=== PATIENT | female | born 1980 | race Two or more races ===

== ENCOUNTER 2016-11-16 15:25 | Emergency (ER) | payer OTHER ==
[~2016-11-16] VITALS: Ht 157.5 cm; Wt 61.2 kg
[~2016-11-16 15:25] MED LIST: ABILIFY20 MG ORAL; ACYCLOVIR800 MG ORAL; ANBESOL9 GM MM; BACITRACIN1 APPLIC TOPIC; BENADRYL25 MG ORAL; CLOTRIMAZOLE15 GM TOPIC; FERROUS SULFAT325 MG ORAL; IBUPROFEN600 MG ORAL; KEFLEX500 MG ORAL; LORATADINE10 M2 PO; MACROBID100 MG ORAL; NORCO 5-325 TA1 EACH ORAL; NORVIR100 MG ORAL; PENICILLIN V P500 MG PO; PREVISTA PO; TRUVADA 200 MG1 EAC1 ORAL
[2016-11-16] MEDS ORDERED: IBUPROFEN600 MG ORAL (16:26)
[2016-11-16] MEDS ORDERED: Bicillin LA 1.2 Million Units Syr IM ONE (16:30)
[2016-11-16] MEDS ORDERED: Ketorolac 30mg Inj IM ONE (16:30)
[2016-11-16 16:43] VITALS: BP 128/73
[2016-11-16 16:44] VITALS: BP 128/73
--- NOTE | 2016-11-16 21:17 | Emergency Room Report ---
History of Present Illness General Chief Complaint: Pain Source: Patient Present Illness HPI The patient is a 35-year-old female presenting with left lower facial swelling and pain which began this morning. The patient thinks this may be due to a dental infection and has had this in the past. The patient states the pain is a 4/10 dull ache it does not radiate. Pain worse with chewing. The patient denies any other symptoms including N, V, F, chills, cough, RICHARDS Allergies: Coded Allergies: EGG (Unverified Allergy, Intermediate, Hives, 06/26/14) METHYLPHENIDATE (Unverified Allergy, Intermediate, 06/26/14) Patient History Past Medical History: see triage record Pertinent Family History: none Last Menstrual Period: Depo-Provera (2016) Now: No Reviewed Nursing Documentation: PMH: Agreed, PSxH: Agreed Nursing Documentation-PMH Past Medical History: No History, Except For Hx Hypertension: No Hx Pacemaker: No Hx Asthma: No Hx COPD: No Hx Diabetes: No Hx Cancer: No Hx Gastrointestinal Problems: No Hx Dialysis: No Hx Neurological Problems: No Hx Cerebrovascular Accident: No Hx Seizures: No Review of Systems All Other Systems: negative except mentioned in HPI Physical Exam Vital Signs Date Time Temp Pulse Resp B/P Pulse Ox O2 Delivery O2 Flow Rate FiO2 11/16/16 15:55 98.4 94 14 125/75 99 Room Air Sp02 EP Interpretation: reviewed, normal General Appearance: no apparent distress, alert, GCS 15, non-toxic Head: normocephalic, atraumatic Eyes: bilateral eye PERRL, bilateral eye normal inspection ENT: normal ENT inspection, hearing grossly normal, normal pharynx, no angioedema, normal voice, other - There is edema to the L lower mandible Neck: full range of motion, supple/symm/no masses Musculoskeletal: back normal, gait/station normal, normal range of motion Neurologic: alert, oriented x3, responsive, motor strength/tone normal, sensory intact, speech normal Psychiatric: judgement/insight normal, memory normal, mood/affect normal, no suicidal/homicidal ideation Skin: normal color, no rash, warm/dry, well hydrated Lymphatic: no adenopathy Medical Decision Making PA Attestation Dr. Munguia is my supervising physician. Patient management was discussed with my supervising physician Diagnostic Impression: Primary Impression: Dental infection ER Course The patient is a 35-year-old female presenting with left lower facial swelling and pain which began this morning. Diagnoses considered but not limited to: Dental kaylie, dental abscess, toothache , gingivitis PE: vitals wnl. NAD. There is edema surrounding the L lower premolar. Obvious dental caries. No fluctuance. No bleeding or DC. The pt is given toradol for pain and PCN benzathine. The pt will DU with dentist JAYJAY. ER precautions given Last Vital Signs Date Time Temp Pulse Resp B/P Pulse Ox O2 Delivery O2 Flow Rate FiO2 11/16/16 16:44 98.3 15 128/73 99 Room Air 11/16/16 16:43 97 Status: improved Disposition: HOME, SELF-CARE Condition: Improved Scripts Ibuprofen* (MOTRIN*) 600 Mg Tablet 600 MG ORAL Q8H Y for For Pain, #30 TAB 0 Refills Prov: RAJANI HALE 11/16/16 Referrals: [facility],REFERRING (PCP) Patient Instructions: Dental Abscess Additional Instructions: I discussed my findings with the patient. All questions and concerns have been answered. Treatment and medication compliance have been addressed. I advised the patient that they need to follow up with PMD in 3-5 days. Return to ED if symptoms worsen, new symptoms arise, or if needed for any reason. Patient verbalized understanding of discharge instructions. The patient needs to see dentist JAYJAY. RAJANI HALE Nov 16, 2016 21:17
== END 2016-11-16 16:45 | disposition home or self-care (01) ==
LOC: EMR 16:44
DX: K04.7 Periapical abscess without sinus (principal); Z88.8 Allergy status to other drugs, medicaments and biological substances; Z91.012 Allergy to eggs
CPT/HCPCS: 96372; 99283; J0561; J1885

== ENCOUNTER 2016-12-31 14:52 | Emergency (ER) | payer OTHER ==
[~2016-12-31] VITALS: Ht 157.5 cm; Wt 66.7 kg
[2016-12-31 15:37] VITALS: BP 103/69
[2016-12-31 16:26] VITALS: BP 103/69
--- NOTE | 2016-12-31 16:26 | Emergency Room Report ---
History of Present Illness General Chief Complaint: Pain Source: Patient Present Illness HPI 36-year-old female complains of right index finger pain for one day. History is limited by some unknown degree of MR and the patient. Patient states that she has moderate to severe right index finger pain. Admits that her finger is tender to touch and worse with bending it. Denies any repetitive motions with her finger, trauma, inflammation, or chronic orthopedic problems. Patient admits that she has HIV and is being managed by infectious disease and is currently being worked up for syphilis by infectious disease. Patient states that she has not taken any medications for her pain. Patient denies any numbness , tingling, pressure, paralysis, cyanosis, bruising, loss of sensation, or loss of range of motion. Allergies: Coded Allergies: EGG (Unverified Allergy, Intermediate, Hives, 06/26/14) METHYLPHENIDATE (Unverified Allergy, Intermediate, 06/26/14) Patient History Past Medical History: see triage record Pertinent Family History: none Last Menstrual Period: 01/01/2016 on depo shot Now: No Immunizations: UTD Reviewed Nursing Documentation: PMH: Agreed, PSxH: Agreed Nursing Documentation-PMH Past Medical History: No History, Except For Hx Hypertension: No Hx Pacemaker: No Hx Asthma: No Hx COPD: No Hx Diabetes: No Hx Cancer: No Hx Gastrointestinal Problems: No Hx Dialysis: No Hx Neurological Problems: No Hx Cerebrovascular Accident: No Hx Seizures: No Review of Systems All Other Systems: negative except mentioned in HPI Physical Exam Vital Signs Date Time Temp Pulse Resp B/P Pulse Ox O2 Delivery O2 Flow Rate FiO2 12/31/16 15:26 98.1 74 16 103/69 100 Room Air Sp02 EP Interpretation: reviewed, normal General Appearance: no apparent distress, alert, GCS 15, non-toxic Head: normocephalic, atraumatic Respiratory: chest non-tender, lungs clear, normal breath sounds, speaking full sentences Cardiovascular #1: regular rate, rhythm, no edema Musculoskeletal: back normal, gait/station normal, normal range of motion, tender - right index finger TTP aling PIP Neurologic: alert, oriented x3, responsive, motor strength/tone normal, sensory intact, speech normal Skin: normal color, no rash, warm/dry, well hydrated Lymphatic: no adenopathy Medical Decision Making PA Attestation Dr. Saez is my supervising physician with whom patient management has been discussed with. Diagnostic Impression: Primary Impression: Tendinitis of finger of right hand ER Course Pt. presents to the ED c/o Right index finger pain x 1 day Ddx considered but are not limited to fracture, tendonitis, tumor, contusion, sprain Vital signs: are WNL, pt. is afebrile H&PE are most consistent with tendonitis ORDERS: Right Hand XR ED INTERVENTIONS: none required at this time. DISCHARGE: At this time pt. is stable for d/c to home. Will provide printed patient care instructions, and any necessary prescriptions. Care plan and follow up instructions have been discussed with the patient prior to discharge. Other X-Ray Diagnostic Results Other X-Ray Diagnostic Results : X-Ray Ordered: Right hand Date: Dec 31, 2016 EP Interpretation: Yes Findings: no fractures, no dislocation, no soft tissue swelling Number of Views: 3 Other Impression Negative Last Vital Signs Date Time Temp Pulse Resp B/P Pulse Ox O2 Delivery O2 Flow Rate FiO2 12/31/16 15:37 16 103/69 100 Room Air 12/31/16 15:26 98.1 74 Status: unchanged Disposition: HOME, SELF-CARE Condition: Stable Scripts Ibuprofen* (MOTRIN*) 600 Mg Tablet 600 MG ORAL Q8H Y for For Pain, #30 TAB 0 Refills Prov: JUDITH EDWARDS 12/31/16 Referrals: [facility],REFERRING (PCP) Patient Instructions: Trigger Finger Additional Instructions: Takie medication as directed. Patient advised to follow up with primary care provider within next 3-5 days. Advised patient to use RICE therapy and nsaids as prescribed. Patient is to go to the ER immediately if they experience any pain that is not responding to medication, excess swelling, pressure feeling, loss of color, cyanosis, paralysis, or numbness. JUDITH EDWARDS Dec 31, 2016 16:26
[2016-12-31] MEDS ORDERED: IBUPROFEN600 MG ORAL (16:27)
--- NOTE | 2017-01-01 11:18 | Diagnostic Imaging Report ---
Indication: pain Findings: 3 views of the right hand were obtained. Normal bony mineralization and alignment are demonstrated. No acute fractures, erosions, or periosteal reaction are seen. Soft tissues are unremarkable. Impression: Negative examination of the right hand.
== END 2016-12-31 16:29 | disposition home or self-care (01) ==
LOC: EMR 15:55
DX: M77.9 Enthesopathy, unspecified (principal); Z91.012 Allergy to eggs; Z88.8 Allergy status to other drugs, medicaments and biological substances
CPT/HCPCS: 99283

== ENCOUNTER 2017-02-19 12:14 | Emergency (ER) | payer OTHER ==
[~2017-02-19] VITALS: Ht 157.5 cm; Wt 59.0 kg
[2017-02-19 12:22] VITALS: BP 107/71
--- NOTE | 2017-02-19 13:01 | Emergency Room Report ---
History of Present Illness General Chief Complaint: Pain Source: Patient Present Illness HPI 36-year-old female presents emergency department complaining of 6/10 in severity localized pain to the right heel x2 days. Patient denies appreciable trauma or fall however she states with full weightbearing that the pain is exacerbated. Patient states she took Motrin earlier which minimized her pain temporarily to approximately 3/10 in severity. Patient denies previous injury to this extremity denies possible foreign body ear stepping on sharp object. Patient denies swelling, erythema, increased temperature palpation, fevers, chills. Denies numbness tingling or loss of sensation or gross motor movements of the extremities, incontinence of bowel or bladder. Denies CP, Palpitations, LOC, AMS, dizziness, Changes in Vision, Sensation, paresthesias, or a sudden severe headache. Allergies: Coded Allergies: EGG (Unverified Allergy, Intermediate, Hives, 06/26/14) METHYLPHENIDATE (Unverified Allergy, Intermediate, 06/26/14) Patient History Past Medical History: see triage record Past Surgical History: none Pertinent Family History: none Last Menstrual Period: unk; depo injection Now: No Immunizations: UTD Reviewed Nursing Documentation: PMH: Agreed, PSxH: Agreed Nursing Documentation-PMH Past Medical History: No Stated History Hx Hypertension: No Hx Pacemaker: No Hx Asthma: No Hx COPD: No Hx Diabetes: No Hx Cancer: No Hx Gastrointestinal Problems: No Hx Dialysis: No Hx Neurological Problems: No Hx Cerebrovascular Accident: No Hx Seizures: No Review of Systems All Other Systems: negative except mentioned in HPI Physical Exam Vital Signs Date Time Temp Pulse Resp B/P Pulse Ox O2 Delivery O2 Flow Rate FiO2 02/19/17 12:22 97.7 79 16 107/71 98 Room Air Sp02 EP Interpretation: reviewed, normal General Appearance: no apparent distress, alert, GCS 15, non-toxic Head: normocephalic, atraumatic Eyes: bilateral eye PERRL, bilateral eye normal inspection ENT: hearing grossly normal, normal pharynx, no angioedema, normal voice Neck: full range of motion, supple/symm/no masses Respiratory: chest non-tender, lungs clear, normal breath sounds, speaking full sentences Cardiovascular #1: regular rate, rhythm, no edema Musculoskeletal: back normal, gait/station normal, normal range of motion, tender - TTP to deep palpation of the plantar aspect of the heel, no achielles tendon tenderness, no obvious deformity, lesions, erythema, swelling, increased temperature to palpation or bruising. pt. has FROM of ankle Neurologic: alert, oriented x3, responsive, motor strength/tone normal, sensory intact, speech normal Psychiatric: judgement/insight normal, memory normal, mood/affect normal, no suicidal/homicidal ideation Reflexes: 4+ bicep (R), 4+ bicep (L), 4+ tricep (R), 4+ tricep (L), 4+ knee (R) , 4+ knee (L) Skin: normal color, no rash, warm/dry, well hydrated Lymphatic: no adenopathy Medical Decision Making PA Attestation Dr. Milian is my supervising Physician whom patient management has been discussed with. Diagnostic Impression: Primary Impression: Pain of right heel ER Course 36-year-old female presents emergency department complaining of 6/10 in severity localized pain to the right heel x2 days. Patient denies appreciable trauma or fall however she states with full weightbearing that the pain is exacerbated. Patient states she took Motrin earlier which minimized her pain temporarily to approximately 3/10 in severity. Patient denies previous injury to this extremity denies possible foreign body ear stepping on sharp object. Patient denies swelling, erythema, increased temperature palpation, fevers, chills. Ddx considered but are not limited to Fracture, dislocation, contusion, Sprain/ Strain/Spasm, Epidural abscess, Neoplastic mets. Vital signs: are WNL, pt. is afebrile H&PE are most consistent with plantar fasciitis, will r/o bone pathology such as fx, D/L , sprain is not suspected at this time. ORDERS: - X-ray Right Foot 3 views - negative for fx, Dislocation, or significant soft tissue injury, per preliminary read in ED by Dr. Milian ED INTERVENTIONS: - Motrin 600mg PO I do not suspect an emergent condition at this time. with current presentation pt. is stable for close outpatient follow up. DISCHARGE: At this time pt. is stable for d/c to home. Will provide printed patient care instructions, and any necessary prescriptions. Care plan and follow up instructions have been discussed with the patient prior to discharge. Last Vital Signs Date Time Temp Pulse Resp B/P Pulse Ox O2 Delivery O2 Flow Rate FiO2 02/19/17 12:22 97.7 16 107/71 98 Room Air 02/19/17 12:22 79 Disposition: HOME, SELF-CARE Condition: Stable Scripts Ibuprofen* (MOTRIN*) 600 Mg Tablet 600 MG ORAL THREE TIMES A DAY, #30 TAB 0 Refills Prov: Brianna Hall 02/19/17 Referrals: NON PHYSICIAN (PCP) Patient Instructions: Plantar Fasciitis Additional Instructions: Take medications as directed. Follow up with PCP in 3-5 days Return sooner to ED if new symptoms occur, or current symptoms become worse. - Please note that this Emergency Department Report was dictated using [employer] technology software, occasionally this can lead to erroneous entry secondary to interpretation by the dictation equipment. Brianna Hall February 19, 2017 13:01
[2017-02-19] MEDS ORDERED: IBUPROFEN600 MG ORAL (13:02)
[2017-02-19 13:13] VITALS: BP 112/80
--- NOTE | 2017-02-20 09:39 | Diagnostic Imaging Report ---
Indications: Right foot pain Technique: 3 views of the right foot Findings: Comparison: None. No fracture, dislocation, lytic destruction, periosteal reaction, surrounding soft tissue swelling, or other acute changes are demonstrated. No deformity, alignment abnormality, arthritic change, soft tissue calcification, or other chronic changes are demonstrated. IMPRESSION: Negative right foot series.
== END 2017-02-19 13:17 | disposition home or self-care (01) ==
LOC: EMR 12:40
DX: M79.671 Pain in right foot (principal); Z88.8 Allergy status to other drugs, medicaments and biological substances; Z91.012 Allergy to eggs
CPT/HCPCS: 99283

== ENCOUNTER → 2017-02-27 | Emergency (ER) | payer OTHER ==
[~2017-02-27] VITALS: Ht 157.5 cm; Wt 66.2 kg
[~2017-02-27] MED LIST changes: +ZOFRAN4 M3 ORAL
[2017-02-27 18:06] LABS: BASOPHILS % (AUTO) 1.2 % (0.0-2.0); EOSINOPHILS % (AUTO) 2.9 % (0.0-3.0); MEAN CORPUSCULAR HEMOGLOBIN 33.6 PG (27.0-31.0); MEAN CORPUSCULAR HGB CONC 36.4 G/DL (32.0-36.0); MEAN CORPUSCULAR VOLUME 92 FL (80-99); MEAN PLATELET VOLUME 8.8 FL (6.5-10.1); MONOCYTES % (AUTO) 7.6 % (1.0-10.0); NEUTROPHILS % (AUTO) 59.4 % (45.0-75.0); PLATELET COUNT 157 K/UL (150-450); RED BLOOD COUNT 3.88 M/UL (4.20-5.40); RED CELL DISTRIBUTION WIDTH 12.9 % (11.6-14.8); WHITE BLOOD COUNT 7.3 K/UL (4.8-10.8)
[2017-02-27 18:12] LABS: CALCIUM 9.2 mg/dL (8.6-10.2); CREATININE 1.1 mg/dL (0.5-0.9); GLOMERULAR FILTRATION RATE 55.6 mL/min (>60); POTASSIUM 3.6 mEQ/L (3.4-4.9)
[2017-02-27 18:16] VITALS: BP 104/67
[2017-02-27 18:22] LABS: THYROID STIMULATING HORMONE 0.397 uIU/mL (0.300-4.500)
--- NOTE | 2017-02-27 20:59 | Emergency Room Report ---
History of Present Illness General Chief Complaint: Edema Source: Patient Present Illness HPI The patient is a 36-year-old female with a history of HIV presenting for right- sided neck swelling which began yesterday. 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 She is unsure of the details of this. She denies being diagnosed with any thyroid abnormalities since then. The patient states pain is an 8/10 dull ache to the right side of the neck. Pain does not radiate. It is worse with touch and swallowing. She denies any other symptoms including nausea, vomiting , fever, chills, cough, rash, fatigue, heat or cold intolerance, diaphoresis, weight loss or gain Allergies: Coded Allergies: EGG (Unverified Allergy, Intermediate, Hives, 06/26/14) METHYLPHENIDATE (Unverified Allergy, Intermediate, 06/26/14) Patient History Past Medical History: see triage record Pertinent Family History: none Last Menstrual Period: 2 yrs (Depo) Now: No Reviewed Nursing Documentation: PMH: Agreed, PSxH: Agreed Nursing Documentation-PMH Past Medical History: No History, Except For Hx Hypertension: No Hx Pacemaker: No Hx Asthma: No Hx COPD: No Hx Diabetes: No Hx Cancer: No Hx Gastrointestinal Problems: No Hx Dialysis: No Hx Neurological Problems: No Hx Cerebrovascular Accident: No Hx Seizures: No Review of Systems All Other Systems: negative except mentioned in HPI Physical Exam Vital Signs Date Time Temp Pulse Resp B/P Pulse Ox O2 Delivery O2 Flow Rate FiO2 02/27/17 16:53 99.9 79 18 104/67 98 Room Air Sp02 EP Interpretation: reviewed, normal General Appearance: no apparent distress, alert, GCS 15, non-toxic Head: normocephalic, atraumatic Eyes: bilateral eye PERRL, bilateral eye normal inspection ENT: hearing grossly normal, normal pharynx, no angioedema, normal voice Neck: full range of motion, supple, no bony tend, tender lateral - Anterior R sided TTP, other - surgical scar over thyroid Respiratory: chest non-tender, lungs clear, normal breath sounds, speaking full sentences Cardiovascular #1: regular rate, rhythm, no edema Musculoskeletal: back normal, gait/station normal, normal range of motion, non- tender Neurologic: alert, oriented x3, responsive, motor strength/tone normal, sensory intact, speech normal Psychiatric: judgement/insight normal, memory normal, mood/affect normal, no suicidal/homicidal ideation Skin: normal color, no rash, warm/dry, well hydrated Lymphatic: no adenopathy Medical Decision Making PA Attestation Dr. Saez is my supervising physician. Patient management was discussed with my supervising physician Diagnostic Impression: Primary Impression: Enlarged thyroid ER Course The patient is a 36-year-old female with a history of HIV presenting for right- sided neck swelling Differential diagnoses considered but not limited to: Thyroiditis, carcinoma, pharyngitis, lymphadenopathy, pharyngitis, abscess, among others Physical exam: Temperature is elevated but afebrile. No apparent distress HEENT: No tonsillar edema or erythema. Uvula midline. Oropharynx is patent. Neck: There is soft tissue swelling to the anterior right neck. Appears to be over thyroid. No left-sided swelling or tenderness. Blood work is unremarkable. Thyroid levels within normal limits CT of the neck is consistent with unilateral right-sided thyroid enlargement. Radiologist states goiter versus cancer. The patient was informed of this as well as her father who was on the phone. The patient is given the CT on a desk and will followup with primary doctor as soon as possible in order to obtain referral. The patient is given ER precautions Laboratory Tests Test 02/27/17 17:40 White Blood Count 7.3 K/UL (4.8-10.8) Red Blood Count 3.88 M/UL (4.20-5.40) L Hemoglobin 13.0 G/DL (12.0-16.0) Hematocrit 35.8 % (37.0-47.0) L Mean Corpuscular Volume 92 FL (80-99) Mean Corpuscular Hemoglobin 33.6 PG (27.0-31.0) H Mean Corpuscular Hemoglobin Concent 36.4 G/DL (32.0-36.0) H Red Cell Distribution Width 12.9 % (11.6-14.8) Platelet Count 157 K/UL (150-450) Mean Platelet Volume 8.8 FL (6.5-10.1) Neutrophils (%) (Auto) 59.4 % (45.0-75.0) Lymphocytes (%) (Auto) 29.0 % (20.0-45.0) Monocytes (%) (Auto) 7.6 % (1.0-10.0) Eosinophils (%) (Auto) 2.9 % (0.0-3.0) Basophils (%) (Auto) 1.2 % (0.0-2.0) Sodium Level 142 mEQ/L (135-145) Potassium Level 3.6 mEQ/L (3.4-4.9) Chloride Level 102 mEQ/L (98-107) Carbon Dioxide Level 22 mEQ/L (20-30) Anion Gap 18 (5-15) H Blood Urea Nitrogen 10 mg/dL (7-23) Creatinine 1.1 mg/dL (0.5-0.9) H Estimate Glomerular Filtration Rate 55.6 mL/min (>60) Glucose Level 108 mg/dL (74-106) H Calcium Level 9.2 mg/dL (8.6-10.2) Thyroid Stimulating Hormone (TSH) 0.397 uIU/mL (0.300-4.500) Free Thyroxine 0.80 ng/dL (0.86-1.85) L Lab Results Impression CBC, CMP, and thyroid studies with normal limits CT/MRI/US Diagnostic Results CT/MRI/US Diagnostic Results : Imaging Test Ordered: CT neck Impression CT of the neck is consistent with unilateral right-sided thyroid enlargement. Radiologist states goiter versus cancer. Last Vital Signs Date Time Temp Pulse Resp B/P Pulse Ox O2 Delivery O2 Flow Rate FiO2 02/27/17 18:16 99.9 79 18 104/67 98 Room Air Status: improved Disposition: HOME, SELF-CARE Condition: Improved Patient Instructions: Goiter, Thyroid Nodule, Thyroid Biopsy Additional Instructions: I discussed my findings with the patient. All questions and concerns have been answered. Treatment and medication compliance have been addressed. I advised the patient that they need to follow up with primary doctor as soon as possible. Return to ED if symptoms worsen, new symptoms arise, or if needed for any reason. Patient verbalized understanding of discharge instructions. The patient is given the CT neck results and will followup with primary doctor as soon as possible for further workup. The patient was informed of the severity of this issue. I spoke with the father as well with consent and will make sure the daughter has appropriate followup RAJANI HALE February 27, 2017 20:59
--- NOTE | 2017-02-28 10:08 | Diagnostic Imaging Report ---
Indications: Neck pain and swelling Technique: Continuous helical CT imaging of the neck from the base of the skull through the aortic arch was performed with automatic exposure control following intravenous administration of nonionic iodine contrast, on a Siemens sensation [address] scanner. Axial, coronal, and sagittal images were reconstructed at 3 mm slice thickness. CTDI volume(s): 8, 16,18 mGy Total DLP: 506 mGy-cm Findings: Comparison: None Visualized portions of brain: Unremarkable. Paranasal sinuses: Imaged portions unremarkable. Nasopharynx: Unremarkable. Oral cavity: Unremarkable. Oropharynx: Small nodular calcifications in both tonsillar pillars. No airway narrowing.. Epiglottis: Unremarkable. False vocal cords: Unremarkable. True vocal cords: Unremarkable. Subglottic airway: Mild narrowing of cervical trachea by thyroid, otherwise unremarkable. Prevertebral soft tissues: Unremarkable. Bilateral parapharyngeal soft tissues: As above, otherwise unremarkable. Lymph nodes: Multiple bilateral level I and level II small nodes to 1.3 cm diameter without obvious architectural distortion/cortical thickening/parenchymal replacement. Superficial soft tissues: Unremarkable. Parotid glands: Unremarkable. Submandibular glands: Unremarkable. Thyroid gland: Asymmetric enlargement of the entire gland, right greater than left, with multiple heterogeneously hypoenhancing nodules, largest on the right 4.5 cm.. Vascular structures: No significant abnormality identified. Skeletal structures: Unremarkable. Lung apices: Unremarkable. Upper mediastinum: Unremarkable. IMPRESSION: No evidence of acute pathology Asymmetric enlargement of thyroid gland with multiple heterogeneously enhancing nodules most compatible small nodular goiter. Malignancy not excludable. Correlate with thyroid function tests, ultrasound, nuclear medicine thyroid scan Bilateral tonsillar pillar calcifications likely chronic sequela of previous tonsillitis Bilateral shotty level I and level II lymph nodes, nonspecific, likely reactive Written preliminary report placed in PACS 02/27/[address] scanner at [facility] is accredited by the [employer] and the scans are performed using protocols designed to limit radiation exposure to as low as reasonably achievable to attain images of sufficient resolution adequate for diagnostic evaluation.
== END | disposition home or self-care (01) ==
LOC: EMR 18:00
DX: E04.9 Nontoxic goiter, unspecified (principal); R60.9 Edema, unspecified; R22.1 Localized swelling, mass and lump, neck; Z88.9 Allergy status to unspecified drugs, medicaments and biological substances; Z91.012 Allergy to eggs
CPT/HCPCS: 36415; 70491; 80048; 82962; 84439; 84443; 85025; 99284; Q9967

== ENCOUNTER 2017-09-13 10:34 | Emergency (ER) | payer OTHER ==
[~2017-09-13] VITALS: Ht 157.5 cm; Wt 61.2 kg
[2017-09-13] MEDS ORDERED: IBUPROFEN600 MG ORAL (11:01)
[2017-09-13 11:11] VITALS: BP 105/68
--- NOTE | 2017-09-13 14:56 | Emergency Room Report ---
History of Present Illness General Chief Complaint: Pain Source: Patient Present Illness HPI 28-year-old female presents to ED for left knee pain. Notes pain behind the left knee started yesterday. Denies trauma. Patient as throbbing, 04/24, nonradiating. Patient denies any other injury. Is able to ambulate. No other aggravating relieving factors. Denies any other associated symptoms Allergies: Coded Allergies: EGG (Unverified Allergy, Intermediate, Hives, 06/26/14) METHYLPHENIDATE (Unverified Allergy, Intermediate, 06/26/14) Patient History Past Medical History: none Past Surgical History: none Pertinent Family History: none Social History: Denies: smoking, alcohol use, drug use Now: No Immunizations: UTD Reviewed Nursing Documentation: PMH: Agreed, PSxH: Agreed Nursing Documentation-PMH Hx Hypertension: No Hx Pacemaker: No Hx Asthma: No Hx COPD: No Hx Diabetes: No Hx Cancer: No Hx Gastrointestinal Problems: No Hx Dialysis: No Hx Neurological Problems: No Hx Cerebrovascular Accident: No Hx Seizures: No Review of Systems All Other Systems: negative except mentioned in HPI Physical Exam Vital Signs Date Time Temp Pulse Resp B/P (MAP) Pulse Ox O2 Delivery O2 Flow Rate FiO2 09/13/17 10:41 97.5 70 18 119/80 99 Room Air Sp02 EP Interpretation: reviewed, normal General Appearance: no apparent distress, alert, GCS 15, non-toxic Head: normocephalic, atraumatic Eyes: bilateral eye normal inspection, bilateral eye PERRL ENT: hearing grossly normal, normal pharynx, no angioedema, normal voice Neck: full range of motion, supple/symm/no masses Respiratory: chest non-tender, lungs clear, normal breath sounds, speaking full sentences Cardiovascular #1: regular rate, rhythm, no edema Cardiovascular #2: 2+ carotid (R), 2+ carotid (L), 2+ radial (R), 2+ radial (L) , 2+ dorsalis pedis (R), 2+ dorsalis pedis (L) Gastrointestinal: normal bowel sounds, non tender, soft, non-distended, no guarding, no rebound Rectal: deferred Genitourinary: normal inspection, no CVA tenderness Musculoskeletal: back normal, gait/station normal, normal range of motion, tender - TTP posterior distal hamstring. no induration or erythema. no swelling Neurologic: alert, oriented x3, responsive, motor strength/tone normal, sensory intact, speech normal Psychiatric: judgement/insight normal, memory normal, mood/affect normal, no suicidal/homicidal ideation Reflexes: 3+ bicep (R), 3+ bicep (L), 3+ tricep (R), 3+ tricep (L), 3+ knee (R) , 3+ knee (L) Skin: normal color, no rash, warm/dry, well hydrated Lymphatic: no adenopathy Medical Decision Making Diagnostic Impression: Primary Impression: Muscle strain ER Course Hospital Course 36-year-old female presents to ED complaining of L knee pain no trauma Differential diagnoses include: Fracture, dislocation, sprain, contusion, bursitis Clinical course Patient placed on stretcher. After initial history, physical exam reveals a female in no acute distress. There is some tenderness to the posterior hamstring distally. Full range of motion to the right knee. No joint laxity. No induration or swelling or erythema. Likely muscle strain. Reassurance given Diagnosis - muscle strain stable and discharged to home with prescription for Motrin. apply heat. Followup with PMD. Return to ED if symptoms recur or worsen Last Vital Signs Date Time Temp Pulse Resp B/P (MAP) Pulse Ox O2 Delivery O2 Flow Rate FiO2 09/13/17 11:11 98.4 71 16 105/68 99 Room Air Status: improved Disposition: HOME, SELF-CARE Condition: Stable Scripts Ibuprofen* (MOTRIN*) 600 Mg Tablet 600 MG ORAL Q8H Y for For Pain, #30 TAB 0 Refills Prov: LEONARDO NUNEZ M.D. 09/13/17 Referrals: [facility],REFERRING (PCP) Patient Instructions: Hamstring Strain With [facility] LEONARDO NUNEZ M.D. Sep 13, 2017 14:56
== END 2017-09-13 11:11 | disposition home or self-care (01) ==
LOC: EMR 11:00
DX: S86.812A Strain of other muscle(s) and tendon(s) at lower leg level, left leg, initial encounter (principal); X58.XXXA Exposure to other specified factors, initial encounter; Y92.9 Unspecified place or not applicable; Z88.8 Allergy status to other drugs, medicaments and biological substances; Z91.012 Allergy to eggs
CPT/HCPCS: 99283

== ENCOUNTER 2017-10-20 17:26 | Emergency (ER) | payer OTHER ==
[~2017-10-20] VITALS: Ht 157.5 cm; Wt 59.0 kg
[2017-10-20] MEDS ORDERED: TAMIFLU75 MG ORAL (17:50)
[2017-10-20 17:51] VITALS: BP 124/82
[2017-10-20 18:15] VITALS: BP 124/82
--- NOTE | 2017-10-20 20:39 | Emergency Room Report ---
History of Present Illness General Chief Complaint: Flu Like Symptoms Source: Patient Present Illness HPI Patient presents emergency department today complaining cough congestion and body aches. She complains of subjective fevers and chills but has no documented fever here. Patient denies any leg pain leg swelling. Patient states that the cough is nonproductive. Symptoms noted to be moderate and patient has had symptoms for one day.No other modifying factors. No other associated signs and symptoms. No other complaints were noted. Allergies: Coded Allergies: EGG (Unverified Allergy, Intermediate, Hives, 06/26/14) METHYLPHENIDATE (Unverified Allergy, Intermediate, 06/26/14) Patient History Past Medical History: HIV Past Surgical History: none Pertinent Family History: none Social History: Denies: smoking, alcohol use, drug use Reviewed Nursing Documentation: PMH: Agreed, PSxH: Agreed Nursing Documentation-PMH Hx Hypertension: No Hx Pacemaker: No Hx Asthma: No Hx COPD: No Hx Diabetes: No Hx Cancer: No Hx Gastrointestinal Problems: No Hx Dialysis: No Hx Neurological Problems: No Hx Cerebrovascular Accident: No Hx Seizures: No Review of Systems All Other Systems: negative except mentioned in HPI Physical Exam Vital Signs Date Time Temp Pulse Resp B/P (MAP) Pulse Ox O2 Delivery O2 Flow Rate FiO2 10/20/17 17:41 98.2 74 20 124/82 99 Room Air Sp02 EP Interpretation: reviewed, normal General Appearance: normal inspection, well appearing, no apparent distress, alert Head: atraumatic Eyes: bilateral eye normal inspection ENT: normal ENT inspection, hearing grossly normal, normal voice Neck: normal inspection, full range of motion, supple, no bony tend Respiratory: normal inspection, lungs clear, normal breath sounds, no respiratory distress, no retraction, no wheezing Cardiovascular #1: regular rate, rhythm, no edema Gastrointestinal: normal inspection, normal bowel sounds, non tender, soft, no guarding, no hernia Genitourinary: no CVA tenderness Musculoskeletal: normal inspection, back normal, normal range of motion Neurologic: normal inspection, alert, responsive, speech normal Psychiatric: normal inspection, judgement/insight normal, mood/affect normal Skin: normal inspection, normal color, no rash Medical Decision Making Diagnostic Impression: Primary Impression: Influenza-like symptoms ER Course Patient presents emergency department today complaining cough congestion subjective fevers and chills. Differential considerations include pneumonia, bronchitis, asthma, COPD just name a few. Patient's exam is consistent with influenza. I felt the patient would benefit from medications because patient has a history HIV. Patient was given Tamiflu prescription.Patient is advised to follow up with primary doctor in 2-3 days and return the emergency room for any worsening symptoms and as needed. Last Vital Signs Date Time Temp Pulse Resp B/P (MAP) Pulse Ox O2 Delivery O2 Flow Rate FiO2 10/20/17 18:15 98.2 20 124/82 99 Room Air 10/20/17 17:51 74 Status: improved Disposition: HOME, SELF-CARE Condition: Stable Scripts Oseltamivir Phosphate (Tamiflu) 75 Mg Capsule 75 MG ORAL TWICE A DAY for 5 Days, CAP Prov: CATHERINE CAMPOVERDE M.D. 10/20/17 Referrals: [facility],REFER (PCP) Patient Instructions: Influenza, Adult, [id number] CATHERINE CAMPOVERDE M.D. Oct 20, 2017 20:39
== END 2017-10-20 18:15 | disposition home or self-care (01) ==
LOC: EMR 17:47
DX: J11.1 Influenza due to unidentified influenza virus with other respiratory manifestations (principal); Z91.012 Allergy to eggs; Z88.8 Allergy status to other drugs, medicaments and biological substances
CPT/HCPCS: 99283

== ENCOUNTER 2017-12-05 10:29 | Emergency (ER) | payer OTHER ==
[~2017-12-05] VITALS: Ht 157.5 cm; Wt 61.2 kg
[~2017-12-05 10:29] MED LIST changes: +TAMIFLU75 MG ORAL
[2017-12-05] MEDS ORDERED: ZYRTEC10 MG ORAL (10:38)
[2017-12-05] MEDS ORDERED: QUETIAPINE FUM100 MG ORAL (10:38)
[2017-12-05] MEDS ORDERED: IBUPROFEN600 MG ORAL (11:21)
[2017-12-05] MEDS ORDERED: TESSALON PERLE100 MG ORAL (11:21)
[2017-12-05] MEDS ORDERED: Ketorolac 30mg Inj IM ONE (11:30)
[2017-12-05 11:40] VITALS: BP 121/72
--- NOTE | 2017-12-05 13:24 | Emergency Room Report ---
History of Present Illness General Chief Complaint: Upper Respiratory Illness Source: Patient Present Illness HPI 36-year-old female presents with fever, chills, cough, runny nose for 2 days. Cough is productive with clear phlegm. Pt still eating/drinking well. +sick contacts. No recent travel. No SOB, cp, abdominal pain, n/v/d. Allergies: Coded Allergies: EGG (Unverified Allergy, Intermediate, Hives, 06/26/14) METHYLPHENIDATE (Unverified Allergy, Intermediate, 06/26/14) Patient History Past Medical History: see triage record Past Surgical History: none Pertinent Family History: none Last Menstrual Period: Depoprovera Now: No Reviewed Nursing Documentation: PMH: Agreed, PSxH: Agreed Nursing Documentation-PMH Hx Hypertension: No Hx Pacemaker: No Hx Asthma: No Hx COPD: No Hx Diabetes: No Hx Cancer: No Hx Gastrointestinal Problems: No Hx Dialysis: No Hx Neurological Problems: No Hx Cerebrovascular Accident: No Hx Seizures: No Review of Systems All Other Systems: negative except mentioned in HPI Physical Exam Vital Signs Date Time Temp Pulse Resp B/P (MAP) Pulse Ox O2 Delivery O2 Flow Rate FiO2 12/05/17 10:33 99.0 85 21 121/72 99 Room Air 99.0 Sp02 EP Interpretation: reviewed, normal General Appearance: normal inspection, well appearing, no apparent distress, alert, GCS 15, non-toxic Head: normocephalic, atraumatic Eyes: bilateral eye normal inspection, bilateral eye PERRL, bilateral eye EOMI ENT: normal ENT inspection, normal pharynx, normal voice, moist mucus membranes Neck: normal inspection, full range of motion, supple Respiratory: normal inspection, lungs clear, normal breath sounds, no respiratory distress, no retraction, no wheezing, speaking full sentences, chest symmetrical Cardiovascular #1: normal inspection, regular rate, rhythm, no edema, normal capillary refill Cardiovascular #2: 2+ radial (R), 2+ radial (L) Gastrointestinal: normal inspection, non tender, soft, non-distended, no guarding Musculoskeletal: normal inspection, back normal, normal range of motion, non- tender Neurologic: normal inspection, alert, oriented x3, responsive, motor strength/ tone normal, sensory intact, normal gait, speech normal Psychiatric: normal inspection, judgement/insight normal, memory normal Skin: normal inspection, normal color, no rash, warm/dry, well hydrated, normal turgor Medical Decision Making Diagnostic Impression: Primary Impression: Upper respiratory infection ER Course 48-euv[age]-v[age]-year-old female p/w fever, chills, runny nose, cough Appears non- toxic, well hydrated, tolerating PO DDX: Viral URI / pneumonia Plan: None in Emergency Room ER course: Pt stable in ED, remains nontoxic appearing, no sob. Tolerating PO Disposition: Patient discharged to home with Tessalleila Hogan and Tamiflu Patient instructed to follow up with PMD in 1 week. Also instructed to take motrin/tylenol at home. Very strict return precautions discussed with patient such as intractable fever and chills, unable to eat or drink, severe chest pain or shortness of breath. Patient verbalized understanding and agrees with plan. Please note that this Emergency Department Report was dictated using [employer]ger[employer] psychiatrist technology software, occasionally this can lead to erroneous entry secondary to interpretation by the dictation equipment Last Vital Signs Date Time Temp Pulse Resp B/P (MAP) Pulse Ox O2 Delivery O2 Flow Rate FiO2 12/05/17 11:40 99.0 21 121/72 99 Room Air 210.2 12/05/17 11:19 85 Disposition: HOME, SELF-CARE Condition: Improved Scripts Ibuprofen* (MOTRIN*) 600 Mg Tablet 600 MG ORAL THREE TIMES A DAY, #30 TAB 0 Refills Prov: Aleksandra Bernstein M.D. 12/05/17 Benzonatate* (TESSALON PERLE*) 100 Mg Capsule 100 MG ORAL THREE TIMES A DAY for 7 Days, #21 PERLE Prov: Aleksandra Bernstein M.D. 12/05/17 [facility] (PCP) Patient Instructions: Upper Respiratory Infection, Adult Aleksandra Bernstein M.D. Dec 05, 2017 13:24
== END 2017-12-05 11:40 | disposition home or self-care (01) ==
LOC: EMR 11:15
DX: J06.9 Acute upper respiratory infection, unspecified (principal); Z88.8 Allergy status to other drugs, medicaments and biological substances; Z91.012 Allergy to eggs
CPT/HCPCS: 96372; 99283; J1885

== ENCOUNTER 2017-12-08 09:16 | Emergency (ER) | payer OTHER ==
[~2017-12-08] VITALS: Ht 157.5 cm; Wt 61.2 kg
[~2017-12-08 09:16] MED LIST changes: +QUETIAPINE FUM100 MG ORAL; +TESSALON PERLE100 MG ORAL; +ZYRTEC10 MG ORAL
[2017-12-08 10:01] VITALS: BP 110/73
[2017-12-08] MEDS ORDERED: PROMETHAZINE-C118 M1 ORAL (10:35)
[2017-12-08 10:45] VITALS: BP 110/73
--- NOTE | 2017-12-08 11:26 | Emergency Room Report ---
History of Present Illness General Chief Complaint: Upper Respiratory Illness Source: Patient, Medical Record Present Illness HPI 36-year-old female presents ED for evaluation. Patient presenting with runny nose, cough, congestive symptoms for the last 5 days. Was seen here 2 days ago. States that her symptoms have not resolved. Notes sore throat and cough with yellowish phlegm. Afebrile. States her boyfriend has similar symptoms. No other aggravating or relieving factors. Denies any other associated symptom Allergies: Coded Allergies: EGG (Unverified Allergy, Intermediate, Hives, 06/26/14) METHYLPHENIDATE (Unverified Allergy, Intermediate, 06/26/14) Patient History Past Medical History: none Past Surgical History: none Pertinent Family History: none Social History: Denies: smoking, alcohol use, drug use Last Menstrual Period: on depo shot Now: No Immunizations: UTD Reviewed Nursing Documentation: PMH: Agreed, PSxH: Agreed Nursing Documentation-PMH Past Medical History: No History, Except For Hx Hypertension: No Hx Pacemaker: No Hx Asthma: No Hx COPD: No Hx Diabetes: No Hx Cancer: No Hx Gastrointestinal Problems: No Hx Dialysis: No Hx Neurological Problems: No Hx Cerebrovascular Accident: No Hx Seizures: No Review of Systems All Other Systems: negative except mentioned in HPI Physical Exam Vital Signs Date Time Temp Pulse Resp B/P (MAP) Pulse Ox O2 Delivery O2 Flow Rate FiO2 12/08/17 09:22 97.8 80 18 110/73 99 Room Air 97.9 Sp02 EP Interpretation: reviewed, normal General Appearance: no apparent distress, alert, GCS 15, non-toxic Head: normocephalic, atraumatic Eyes: bilateral eye normal inspection, bilateral eye PERRL ENT: hearing grossly normal, normal pharynx, no angioedema, normal voice Neck: full range of motion, supple/symm/no masses Respiratory: chest non-tender, lungs clear, normal breath sounds, speaking full sentences Cardiovascular #1: regular rate, rhythm, no edema Cardiovascular #2: 2+ carotid (R), 2+ carotid (L), 2+ radial (R), 2+ radial (L) , 2+ dorsalis pedis (R), 2+ dorsalis pedis (L) Gastrointestinal: normal bowel sounds, non tender, soft, non-distended, no guarding, no rebound Rectal: deferred Genitourinary: normal inspection, no CVA tenderness Musculoskeletal: back normal, gait/station normal, normal range of motion, non- tender Neurologic: alert, oriented x3, responsive, motor strength/tone normal, sensory intact, speech normal Psychiatric: judgement/insight normal, memory normal, mood/affect normal, no suicidal/homicidal ideation Reflexes: 3+ bicep (R), 3+ bicep (L), 3+ tricep (R), 3+ tricep (L), 3+ knee (R) , 3+ knee (L) Skin: normal color, no rash, warm/dry, well hydrated Lymphatic: no adenopathy Medical Decision Making Diagnostic Impression: Primary Impression: Upper respiratory infection Qualified Codes: J06.9 - Acute upper respiratory infection, unspecified ER Course Hospital Course 36-year-old female presents to ED complaining of cough, runny nose with sore throat Differential diagnoses include: URI, pharyngitis, otitis media, asthma Clinical course Patient placed on stretcher. After initial history, physical exam reveals a young male in no acute distress. Bilateral TM unremarkable. No pharyngeal erythema. No tonsillar exudates. No lymphadenopathy. lungs clear. abdomen soft. Clinical findings consistent with URI. Reassurance given to parents. treatment is supportive therapy Patient's main complaint is the coughing which keeps her up at night. Patient was prescribed Tessalon Perles which states did not help. I will write for promethazine/codeine Diagnosis - URI Stable and discharged home with Rx Promethazine/codeine. Instructed to followup with PMD. Return to ED if symptoms recur or worsen Last Vital Signs Date Time Temp Pulse Resp B/P (MAP) Pulse Ox O2 Delivery O2 Flow Rate FiO2 12/08/17 10:45 97.9 18 110/73 99 Room Air 208.2 12/08/17 10:01 80 Status: improved Disposition: HOME, SELF-CARE Condition: Stable Scripts Codeine/Promethazine Hcl* (PROMETHAZINE-CODEINE SYRUP*) 118 Ml Syrup 5 ML ORAL Q4H Y for For Cough, #118 ML 0 Refills Prov: LEONARDO NUNEZ M.D. 12/08/17 Referrals: [facility],REFER (PCP) Patient Instructions: Upper Respiratory Infection, Adult LEONARDO NUNEZ M.D. Dec 08, 2017 11:26
== END 2017-12-08 10:46 | disposition home or self-care (01) ==
LOC: EMR 09:40
DX: J06.9 Acute upper respiratory infection, unspecified (principal); Z88.8 Allergy status to other drugs, medicaments and biological substances; Z91.012 Allergy to eggs
CPT/HCPCS: 99283

== ENCOUNTER 2018-03-24 07:13 | Emergency (ER) | payer OTHER ==
[~2018-03-24] VITALS: Ht 157.5 cm; Wt 56.7 kg
[~2018-03-24 07:13] MED LIST changes: +PROMETHAZINE-C118 M1 ORAL
[2018-03-24] MEDS ORDERED: PROZAC10 MG ORAL (07:24)
--- NOTE | 2018-03-24 07:38 | Emergency Room Report ---
History of Present Illness General Chief Complaint: General Complaint Source: Patient Present Illness HPI Patient is a 37-year-old female who presented after continued vaginal bleeding after Depo-Provera injection. The patient had been recently seen by her doctor and given the depth or injection. She denies being . The patient has prior history of depression as well as HIV. The patient reports having the tongue lesion which has been slow to heal. The patient states this was bleeding 3 days ago. [place] [facility] [place]. Allergies: Coded Allergies: EGG (Unverified Allergy, Intermediate, Hives, 06/26/14) METHYLPHENIDATE (Unverified Allergy, Intermediate, 06/26/14) Patient History Past Medical History: see triage record Last Menstrual Period: Current Now: No - Depoprovera : 0 Reviewed Nursing Documentation: PMH: Agreed; PSxH: Agreed Nursing Documentation-PMH Hx Hypertension: No Hx Pacemaker: No Hx Asthma: No Hx COPD: No Hx Diabetes: No Hx Cancer: No Hx Gastrointestinal Problems: No Hx Dialysis: No Hx Neurological Problems: No Hx Cerebrovascular Accident: No Hx Seizures: No Review of Systems All Other Systems: negative except mentioned in HPI Physical Exam Vital Signs Date Time Temp Pulse Resp B/P (MAP) Pulse Ox O2 Delivery O2 Flow Rate FiO2 03/24/18 07:19 97.9 69 16 109/74 100 Room Air 97.9 General Appearance: well appearing, no apparent distress, alert, GCS 15, non- toxic, Chronically Ill Head: normocephalic, atraumatic ENT: hearing grossly normal, normal voice, other - healing tongue lesion, longitudinal to left side of middle of tongue, no bleeding Neck: full range of motion, supple Respiratory: no respiratory distress, speaking full sentences Gastrointestinal: normal inspection, non tender Musculoskeletal: normal inspection, back normal, gait/station normal, no calf tenderness Neurologic: normal inspection, alert, oriented x3, responsive, 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 Patient has a benign exam and does not appear to require any further imaging or laboratory testing at this time. test was ordered. Labs Test 03/24/18 07:31 Urine Color Pale yellow Urine Appearance Cloudy Urine pH 7 (4.5-8.0) Urine Specific [place] 1.010 (1.005-1.035) Urine Protein 1+ (NEGATIVE) Urine Glucose (UA) Negative (NEGATIVE) Urine Ketones Negative (NEGATIVE) Urine Occult Blood 5+ (NEGATIVE) Urine Nitrite Negative (NEGATIVE) Urine Bilirubin Negative (NEGATIVE) Urine Urobilinogen Normal MG/DL (0.0-1.0) Urine Leukocyte Esterase Negative (NEGATIVE) Urine RBC 5-10 /HPF (0 - 2) Urine WBC 0-2 /HPF (0 - 2) Urine Squamous Epithelial Cells None /LPF (NONE/OCC) Urine Amorphous Sediment Moderate /LPF (NONE) Urine Bacteria Few /HPF (NONE) Urine HCG, Qualitative Negative (NEGATIVE) Last Vital Signs Date Time Temp Pulse Resp B/P (MAP) Pulse Ox O2 Delivery O2 Flow Rate FiO2 03/24/18 07:19 97.9 69 16 109/74 100 Room Air 97.9 Status: improved Disposition: HOME, SELF-CARE Condition: Stable Scripts Cephalexin* (KEFLEX*) 500 Mg Capsule 500 MG ORAL EVERY 6 HOURS, #28 CAP Prov: Ryan Saez MD 03/24/18 Ryan Saez MD Mar 24, 2018 07:38
[2018-03-24] MEDS ORDERED: CEPHALEXIN500 MG ORAL (07:47)
[2018-03-24 08:10] LABS: BILIRUBIN, URINE NEGATIVE (NEGATIVE); COLOR,URINE PALE YELLOW; GLUCOSE, URINE (UA) NEGATIVE (NEGATIVE); KETONES,URINE NEGATIVE (NEGATIVE); LEUKOCYTE ESTERASE ,URINE NEGATIVE (NEGATIVE); NITRITE,URINE NEGATIVE (NEGATIVE); PH,URINE 7 (4.5-8.0); PROTEIN,URINE 1+ (NEGATIVE); UROBILINOGEN,URINE NORMAL MG/DL (0.0-1.0)
[2018-03-24 08:17] LABS: APPEARANCE,URINE CLOUDY
[2018-03-24 08:36] VITALS: BP 112/68
[2018-03-24 08:37] VITALS: BP 109/74
== END 2018-03-24 08:38 | disposition home or self-care (01) ==
LOC: EMR 07:46
DX: N92.0 Excessive and frequent menstruation with regular cycle (principal); K12.30 Oral mucositis (ulcerative), unspecified; N39.0 Urinary tract infection, site not specified; Z88.8 Allergy status to other drugs, medicaments and biological substances; Z91.012 Allergy to eggs
CPT/HCPCS: 81003; 81025; 99283

== ENCOUNTER 2018-05-28 15:04 | Emergency (ER) | payer OTHER ==
[~2018-05-28] VITALS: Ht 157.5 cm; Wt 56.7 kg
[~2018-05-28 15:04] MED LIST changes: +CEPHALEXIN500 MG ORAL; +PROZAC10 MG ORAL
--- NOTE | 2018-05-28 15:27 | Emergency Room Report ---
History of Present Illness General Chief Complaint: Skin Rash/Abscess Source: Patient Present Illness HPI 37-year-old female patient presents ER complaining of left bump on the back of her hand x1day. Reports bump is been there for several weeks. Reports pain with movement of the wrist. Reports left-hand dominant. Denies recent injury or trauma. Denies other acute symptoms at this time. Requesting x-ray of the hand. Allergies: Coded Allergies: EGG (Unverified Allergy, Intermediate, Hives, 06/26/14) METHYLPHENIDATE (Unverified Allergy, Intermediate, 06/26/14) Patient History Past Medical History: see triage record Last Menstrual Period: unknown. pt on control. Now: No Reviewed Nursing Documentation: PMH: Agreed; PSxH: Agreed Nursing Documentation-PMH Past Medical History: No History, Except For Hx Hypertension: No Hx Pacemaker: No Hx Asthma: No Hx COPD: No Hx Diabetes: No Hx Cancer: No Hx Gastrointestinal Problems: No Hx Dialysis: No Hx Neurological Problems: No Hx Cerebrovascular Accident: No Hx Seizures: No Review of Systems All Other Systems: negative except mentioned in HPI Physical Exam Vital Signs Date Time Temp Pulse Resp B/P (MAP) Pulse Ox O2 Delivery O2 Flow Rate FiO2 05/28/18 15:09 98.1 76 18 115/76 98 Room Air 98.1 Sp02 EP Interpretation: reviewed, normal General Appearance: well appearing, no apparent distress, alert, GCS 15, non- toxic Head: normocephalic, atraumatic Eyes: bilateral eye normal inspection, bilateral eye PERRL ENT: hearing grossly normal, normal pharynx, no angioedema, normal voice, uvula midline, moist mucus membranes Neck: full range of motion Respiratory: lungs clear, normal breath sounds, no rhonchi, no respiratory distress, no accessory muscle use, no wheezing, speaking full sentences Cardiovascular #1: regular rate, rhythm, no edema Cardiovascular #2: 2+ radial (R), 2+ radial (L) Musculoskeletal: back normal, digits/nails normal, gait/station normal, normal range of motion, non-tender, other - dorsum of left wrist: Fluctuant nodule, erythema or edema, TTP Neurologic: alert, oriented x3, responsive, motor strength/tone normal, sensory intact Psychiatric: mood/affect normal Skin: no rash Medical Decision Making PA Attestation Dr. Gallardo is my supervising Physician whom patient management has been discussed with. Diagnostic Impression: Primary Impression: Ganglion cyst ER Course Pt. presents to the ED c/o bump on left wrist. Ddx considered but are not limited to fracture, sprain, strain, contusion, dislocation. No erythema, no warmth to touch, no fever, nontoxic appearing, low suspicion for septic joint. Vital signs: are WNL, pt. is afebrile Ordered X-ray and pain medication. ER COURSE Provided with pain medication. An X-ray of the left wrist negative for acute disease. Likely ganglion cyst. Splint was applied to the left wrist and was checked afterwards by me showing good alignment and support with distal neurovascular functioning intact. provided with contact information hand specialist. Call to schedule appointment. Follow with PCP to get referral if needed. Patient instructed on RICE method: rest, ice, compression, elevation. Followup with primary care provider. Discuss referral to ortho/pain management/ PT as needed. Discuss further imaging with MRI/CT as needed. DISCHARGE: -Rx provided for Tylenol for pain symptoms. At this time pt. is stable for d/c to home. Patient is resting comfortably, in no acute distress, nontoxic appearing, talking without difficulty. Will provide printed patient care instructions, and any necessary prescriptions. Patient instructed to follow with primary care provider in 3 - 5 days and to request further follow-up as needed. Care plan and follow up instructions have been discussed with the patient prior to discharge. Take medications as directed. Patient questions asked and answered. Patient reports understanding and agreement to treatment plan. ER precautions given, patient instructed to return to ER immediately for any new or worsening of symptoms. - Please note that this Emergency Department Report was dictated using [employer] sales associate technology software, occasionally this can lead to erroneous entry secondary to interpretation by the dictation equipment. Last Vital Signs Date Time Temp Pulse Resp B/P (MAP) Pulse Ox O2 Delivery O2 Flow Rate FiO2 05/28/18 15:09 98.1 76 18 115/76 98 Room Air 98.1 Disposition: HOME, SELF-CARE Condition: Stable Scripts Acetaminophen* (TYLENOL EXTRA STRENGTH*) 500 Mg Tablet 500 MG ORAL Q8H PRN for Prn Headache/Temp > 101, #30 TAB 0 Refills Prov: Oj Fox 05/28/18 Patient Instructions: Ganglion Cyst Additional Instructions: Patient instructed to follow up with primary care provider and discuss further referral to surgeon. Patient instructed on RICE method: rest, ice, compression, elevation. Patient instructed to WBAT. Take medications as directed. Patient questions asked and answered. ER precautions given, patient instructed to return to ER immediately for any new or worsening of symptoms. Oj Fox May 28, 2018 15:27
[2018-05-28 15:30] VITALS: BP 115/76
[2018-05-28] MEDS ORDERED: Acetaminophen 500mg (ES) tab ORAL ONE (15:30)
[2018-05-28] MEDS ORDERED: TYLENOL EXTRA500 MG ORAL (15:55)
[2018-05-28 16:06] VITALS: BP 115/76
--- NOTE | 2018-05-28 16:09 | Diagnostic Imaging Report ---
Clinical Indication:Wrist pain, lump on left wrist Technique: 3 views of the left wrist Comparison: None Findings: No acute fractures. No dislocations. The joint spaces are preserved. No findings to explain stated clinical history of palpable lump are evident Impression: Negative
== END 2018-05-28 16:07 | disposition home or self-care (01) ==
LOC: EMR 15:27
DX: M67.432 Ganglion, left wrist (principal)
CPT/HCPCS: 99283

== ENCOUNTER 2018-07-22 12:13 | Emergency (ER) | payer OTHER ==
[~2018-07-22] VITALS: Ht 157.5 cm; Wt 53.1 kg
[~2018-07-22 12:13] MED LIST changes: +TYLENOL EXTRA500 MG ORAL
[2018-07-22 12:22] VITALS: BP 116/72
--- NOTE | 2018-07-22 12:53 | Emergency Room Report ---
Physical Exam Vital Signs Date Time Temp Pulse Resp B/P (MAP) Pulse Ox O2 Delivery O2 Flow Rate FiO2 07/22/18 12:16 98.3 76 17 115/77 98 Room Air 98.2 Sp02 EP Interpretation: reviewed, normal General Appearance: no apparent distress, alert, GCS 15, non-toxic Head: normocephalic, atraumatic Eyes: bilateral eye normal inspection, bilateral eye PERRL Musculoskeletal: normal range of motion, tender - L hand palmar surface primarily over thenar prominence Neurologic: alert, oriented x3, responsive, motor strength/tone normal, sensory intact, speech normal Psychiatric: judgement/insight normal, memory normal, mood/affect normal, no suicidal/homicidal ideation Skin: no rash, abrasions - L hand palmar surface Medical Decision Making PA Attestation Dr. Gallardo is my supervising physician. Patient management was discussed with my supervising physician Diagnostic Impression: Primary Impression: Abrasion ER Course Patient is a 37-year-old female presenting for hand pain. Ddx considered include but not limited to abrasion, cellulitis, sprain/strain, fracture, contusion PE: NAD. Afebrile. L hand: There is an abrasion over the left palmar surface primarily over thenar prominence. No surrounding erythema. No bony tenderness. No deformity. Full active range of motion of wrist is intact X-ray of the left wrist unremarkable The area is cleaned with normal saline and Betadine and wrapped with gauze. She is given prescription for Motrin and bacitracin. Follow up with primary doctor ER precautions are given Other X-Ray Diagnostic Results Other X-Ray Diagnostic Results : # of Views/Limited Vs Complete: 3 View Indication: Pain EP Interpretation: Yes PA Xray: Interpretation reviewed, by supervising MD, and agrees with findings. Interpretation: no dislocation, no soft tissue swelling, no fractures Impression: No acute disease Electronically Signed by: Dhruv Hale PA-C Last Vital Signs Date Time Temp Pulse Resp B/P (MAP) Pulse Ox O2 Delivery O2 Flow Rate FiO2 07/22/18 12:22 98.1 74 17 116/72 98 Room Air 98.1 Status: improved Disposition: HOME, SELF-CARE Condition: Improved Scripts Bacitracin (Bacitracin) 28.4 Gm Oint...g. 1 APPLIC TOPIC THREE TIMES A DAY, #28 GM Prov: DHRUV HALE 07/22/18 Ibuprofen* (MOTRIN*) 600 Mg Tablet 600 MG ORAL Q8H PRN for For Pain, #30 TAB 0 Refills Prov: DHRUV HALE 07/22/18 Referrals: [facility],REFERRING (PCP) History of Present Illness General Source: Patient Present Illness HPI Patient is a 37-year-old female presenting for hand pain. She states that she was walking, tripped, and fell onto her hands. She is now complaining of left hand pain 5 out of 10 burning sensation. This occurred 2 days prior to arrival. She states that she cleaned the area with soap and water several times. She denies hitting her head or loss of consciousness. She denies any other symptoms including rash, fever, numbness Allergies: Coded Allergies: EGG (Unverified Allergy, Intermediate, Hives, 06/26/14) METHYLPHENIDATE (Unverified Allergy, Intermediate, 06/26/14) Patient History Past Medical History: see triage record Pertinent Family History: none Now: No Reviewed Nursing Documentation: PMH: Agreed; PSxH: Agreed Nursing Documentation-PMH Past Medical History: No History, Except For Hx Hypertension: No Hx Pacemaker: No Hx Asthma: No Hx COPD: No Hx Diabetes: No Hx Cancer: No Hx Gastrointestinal Problems: No Hx Dialysis: No Hx Neurological Problems: No Hx Cerebrovascular Accident: No Hx Seizures: No Review of Systems All Other Systems: negative except mentioned in HPI DHRUV HALE Jul 22, 2018 12:53
[2018-07-22] MEDS ORDERED: IBUPROFEN600 MG ORAL (12:55)
[2018-07-22] MEDS ORDERED: BACITRACIN15 GM TOPIC (12:55)
[2018-07-22 13:06] VITALS: BP 116/72
--- NOTE | 2018-07-23 10:57 | Diagnostic Imaging Report ---
Indication: Pain left wrist pain Findings: 3 views of the left wrist were obtained. No acute fractures, malalignment, erosions or periostitis are identified. Soft tissues are unremarkable. Impression: No acute findings.
== END 2018-07-22 13:06 | disposition home or self-care (01) ==
LOC: EMR 12:35
DX: S60.512A Abrasion of left hand, initial encounter (principal); M79.642 Pain in left hand; W01.0XXA Fall on same level from slipping, tripping and stumbling without subsequent striking against object, initial encounter; Y93.9 Activity, unspecified; Y92.9 Unspecified place or not applicable; Y99.9 Unspecified external cause status
CPT/HCPCS: 99283

== ENCOUNTER 2018-10-10 16:51 | Emergency (ER) | payer OTHER ==
[~2018-10-10] VITALS: Ht 157.5 cm; Wt 54.0 kg
[~2018-10-10 16:51] MED LIST changes: +BACITRACIN15 GM TOPIC
[2018-10-10 16:55] VITALS: BP 113/67
[2018-10-10] MEDS ORDERED: BACITRACIN-P28.35 GM TP (17:09)
[2018-10-10] MEDS ORDERED: BENADRYL25 MG ORAL (17:09)
--- NOTE | 2018-10-10 17:11 | Emergency Room Report ---
History of Present Illness General Chief Complaint: Skin Rash/Abscess Source: Patient Present Illness HPI 37-year-old female patient presents the ER complaining of "I think I got bit by a bug on my left earlobe" 3 days ago. Patient reports she did not see the bug. Reports she "thinks" she may have scratched it while she was sleeping.'s no active bleeding or drainage. Reports mild itching and pain noted at earlobe. Denies hearing changes. Denies fever, chest pain, shortness of breath. Reports up-to-date on tetanus vaccination. Denies vomiting or vision changes. Denies other acute symptoms. States has not taken any medication for relief of symptoms. Reports history of HIV, states she takes her medications as instructed, states viral load is undetectable and CD4 count is "very high". Allergies: Coded Allergies: EGG (Unverified Allergy, Intermediate, Hives, 06/26/14) METHYLPHENIDATE (Unverified Allergy, Intermediate, 06/26/14) Patient History Past Medical History: see triage record Reviewed Nursing Documentation: PMH: Agreed; PSxH: Agreed Nursing Documentation-PMH Past Medical History: No History, Except For Hx Hypertension: No Hx Pacemaker: No Hx Asthma: No Hx COPD: No Hx Diabetes: No Hx Cancer: No Hx Gastrointestinal Problems: No Hx Dialysis: No Hx Neurological Problems: No Hx Cerebrovascular Accident: No Hx Seizures: No Review of Systems All Other Systems: negative except mentioned in HPI Physical Exam Vital Signs Date Time Temp Pulse Resp B/P (MAP) Pulse Ox O2 Delivery O2 Flow Rate FiO2 10/10/18 16:55 97.9 79 18 113/67 99 Room Air Sp02 EP Interpretation: reviewed, normal General Appearance: well appearing, no apparent distress, alert, GCS 15, non- toxic Head: normocephalic, atraumatic Eyes: bilateral eye normal inspection, bilateral eye PERRL ENT: hearing grossly normal, normal pharynx, no angioedema, normal voice, TMs + canals normal, uvula midline, moist mucus membranes Neck: full range of motion Respiratory: lungs clear, normal breath sounds, no rhonchi, no respiratory distress, no accessory muscle use, no wheezing, speaking full sentences Cardiovascular #1: regular rate, rhythm, no edema Musculoskeletal: back normal, digits/nails normal, gait/station normal, normal range of motion, non-tender Neurologic: alert, oriented x3, responsive, motor strength/tone normal, sensory intact Skin: other - Small abrasion noted on left earlobe, dried blood present, no active bleeding, no palpable mass, no fluctuance or induration, mild erythema noted at abrasion, no surrounding erythema or edema Medical Decision Making PA Attestation Dr. Milian is my supervising Physician whom patient management has been discussed with. Diagnostic Impression: Primary Impression: Insect bite ER Course Pt. presents to the ED c/o bug bite. Ddx considered but are not limited to atopic dermatitis, bug bite, urticaria, allergic reaction. Vital signs: are WNL, pt. is afebrile ER COURSE: Physical exam consistent abrasion on left ear lobe likely secondary to bug bite. No edema, no warmth to touch, no palpable mass, no fluctuance or induration, low suspicion for cellulitis or abscess, does not require oral antibiotics at this time. Cleaned and dressed with sterile gauze and bacitracin. Do not scratch, apply cool compresses to affected area. Take Claritin during the day and Benadryl at night for itching symptoms. Followup with PCP and request referral to derm. DISCHARGE: -Rx given for Benadryl for pruritis. SE may cause drowsiness. -Rx given for Bacitracin At this time pt. is stable for d/c to home. Patient resting comfortably, in no acute distress, nontoxic appearing. Care plan and follow up instructions have been discussed with the patient prior to discharge. Patient provided with printed patient care instructions, and any necessary prescriptions. Patient instructed to follow-up with primary care provider in 3 - 5 days. Patient questions asked and answered. Patient reports understanding and agreement to treatment plan. ER precautions given. Patient instructed to return to ER immediately for any new or worsening of symptoms including but not limited to increasing SOB, persistent fever. - Please note that this Emergency Department Report was dictated using [email or web address] technology software, occasionally this can lead to erroneous entry secondary to interpretation by the dictation equipment. Last Vital Signs Date Time Temp Pulse Resp B/P (MAP) Pulse Ox O2 Delivery O2 Flow Rate FiO2 10/10/18 16:55 97.9 79 18 113/67 99 Room Air Status: improved Disposition: HOME, SELF-CARE Condition: Stable Scripts Diphenhydramine Hcl* (BENADRYL*) 25 Mg Capsule 25 MG ORAL HS PRN for Itching, #30 CAP Prov: Oj Fox 10/10/18 Bacitracin/Polymyxin B Sulfate (BACITRACIN-POLYMYXIN OINTMENT) 28.35 Gm Oint...g. 1 APPLIC TP BID, #28 GM Prov: Oj Fox 10/10/18 Patient Instructions: Abrasion, [id number], Insect Bite, [id number] Additional Instructions: Followup with primary care provider in 2-3 days for wound check. Request referral to dermatology as needed. Do not scratch or itch. Apply cool compresses to affected area. Take medications as directed. SE Benadryl drowsiness, do not take prior to drinking, driving, operating heavy machinery. Take Claritin during the day and Benadryl at night for itching symptoms. Patient questions asked and answered. ER precautions given, patient instructed to return to ER immediately for any new or worsening of symptoms. [facility] Oj Fox Oct 10, 2018 17:11
[2018-10-10] MEDS ORDERED: Bacitracin Oint UD TOPIC ONE (17:15)
[2018-10-10 17:21] VITALS: BP 113/67
== END 2018-10-10 17:39 | disposition home or self-care (01) ==
LOC: EMR 17:22
DX: S00.462A Insect bite (nonvenomous) of left ear, initial encounter (principal); W57.XXXA Bitten or stung by nonvenomous insect and other nonvenomous arthropods, initial encounter; Y92.9 Unspecified place or not applicable; R21 Rash and other nonspecific skin eruption; Z88.8 Allergy status to other drugs, medicaments and biological substances; Z91.012 Allergy to eggs
CPT/HCPCS: 99283

== ENCOUNTER 2018-10-18 12:23 | Emergency (ER) | payer OTHER ==
[~2018-10-18] VITALS: Ht 157.5 cm; Wt 53.5 kg
[~2018-10-18 12:23] MED LIST changes: +BACITRACIN-P28.35 GM TP
[2018-10-18 12:28] VITALS: BP 123/84
--- NOTE | 2018-10-18 12:28 | NUR ---
ED Nurse Note: pt walked into ED c/o hand shaking, pt states it is constant and she noted couple days ago, denies injury or pain at this time but concerned it could be related to her hx HIV. Pt AA&ox4, gcs=15, skin warm and dry resp even and unlabored, -n/v/d, ambulates w/ steady gait, pt able to write. Pt blanket provided for comfort, will continue to monitor.
--- NOTE | 2018-10-18 13:08 | Emergency Room Report ---
History of Present Illness General Chief Complaint: General Complaint Source: Patient Present Illness HPI 37 YO female presents to the ED c/o itching in her left arm 3 days. denies trauma or fall. patient is currently taking Antiviral meds, Prozac and ability. She denies pain, weakness, paresthesias. Denies hitting her head recently and denies history of seizures. She denies changes in her medications. Denies swelling, skin color changes, or muscle spasms elsewhere. Allergies: Coded Allergies: EGG (Unverified Allergy, Intermediate, Hives, 06/26/14) METHYLPHENIDATE (Unverified Allergy, Intermediate, 06/26/14) Patient History Past Medical History: HIV Past Surgical History: none Pertinent Family History: none Now: No Reviewed Nursing Documentation: PMH: Agreed; PSxH: Agreed Nursing Documentation-PMH Past Medical History: No History, Except For Hx Hypertension: No Hx Pacemaker: No Hx Asthma: No Hx COPD: No Hx Diabetes: No Hx Cancer: No Hx Gastrointestinal Problems: No Hx Dialysis: No Hx Neurological Problems: No Hx Cerebrovascular Accident: No Hx Seizures: No Review of Systems All Other Systems: negative except mentioned in HPI Physical Exam Vital Signs Date Time Temp Pulse Resp B/P (MAP) Pulse Ox O2 Delivery O2 Flow Rate FiO2 10/18/18 12:27 97.9 77 18 123/84 97 Room Air Sp02 EP Interpretation: reviewed, normal General Appearance: no apparent distress, alert, GCS 15, non-toxic Head: normocephalic, atraumatic Eyes: bilateral eye normal inspection, bilateral eye PERRL ENT: hearing grossly normal, normal voice Neck: full range of motion Respiratory: lungs clear, normal breath sounds, speaking full sentences Cardiovascular #1: regular rate, rhythm, normal capillary refill Cardiovascular #2: 2+ radial (R), 2+ radial (L) Rectal: deferred Genitourinary: normal inspection Musculoskeletal: back normal, gait/station normal, normal range of motion, non- tender Neurologic: alert, oriented x3, responsive, motor strength/tone normal, sensory intact, normal gait, speech normal, 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 cuenca is my supervising Physician whom patient management has been discussed with. Diagnostic Impression: Primary Impression: Dystonia of extremity ER Course 37 YO female presents to the ED c/o itching in her left arm 3 days. denies trauma or fall. patient is currently taking Antiviral meds, Prozac and ability. She denies pain, weakness, paresthesias. Denies hitting her head recently and denies history of seizures. She denies changes in her medications. Denies swelling, skin color changes, or muscle spasms elsewhere. Ddx considered but are not limited to EPS, Medication SE, Focal Seizure, benign tremor just to name a few. Vital signs: are WNL, pt. 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 ORDERS: none required at this time, the diagnosis is clinical ED INTERVENTIONS: -Benadryl PO DISCHARGE: At this time pt. is stable for d/c to home. Will provide printed patient care instructions, and any necessary prescriptions. Care plan and follow up instructions have been discussed with the patient prior to discharge. Last Vital Signs Date Time Temp Pulse Resp B/P (MAP) Pulse Ox O2 Delivery O2 Flow Rate FiO2 10/18/18 12:28 97.9 78 18 123/84 97 Room Air Disposition: HOME, SELF-CARE Condition: Stable Scripts Diphenhydramine Hcl* (BENADRYL*) 25 Mg Capsule 25 MG ORAL Q6H PRN for Per rx protocol, #30 CAP Prov: Brianna Hall 10/18/18 Patient Instructions: Dystonic Reaction Additional Instructions: Take medications as directed. Follow up with a Primary Care Provider in 3-5 days, even if your symptoms have resolved. --Recommend Psychiatric and Neurologic Evaluation to identify underlying cause of involuntary arm movements. Return sooner to ED if new symptoms occur, or current symptoms become worse. Do not drink alcohol, drive, or operate heavy machinery while taking Benadryl as this may cause drowsiness. - Please note that this Emergency Department Report was dictated using [employer] maker technology software, occasionally this can lead to erroneous entry secondary to interpretation by the dictation equipment. Brianna aHll Oct 18, 2018 13:08
[2018-10-18] MEDS ORDERED: BENADRYL25 MG ORAL (13:10)
--- NOTE | 2018-10-18 13:19 | NUR ---
ED Nurse Note: Pt discharge instruction provided w/ prescription, id band removed, pt education done via discussion and handout, pt verbalized understanding and agrees with plan, pt advised to follow up with pcp regarding pt's condition, pt advised to return to ed if s/s worsen or new s/s develop.
[2018-10-18 13:20] VITALS: BP 130/89
== END 2018-10-18 13:23 | disposition home or self-care (01) ==
LOC: EMR 13:00
DX: G24.9 Dystonia, unspecified (principal); Z88.8 Allergy status to other drugs, medicaments and biological substances; Z91.012 Allergy to eggs
CPT/HCPCS: 99282